=== PATIENT | female | born 1995 | race Caucasian/White ===

== ENCOUNTER → 2017-08-29 | Outpatient (CLI) | payer BC ==
[~2017-08-29] MED LIST: MEDR150I IM; METF500 PO; Omeprazole20 M1; TOPI25; TRAZ50
== END | disposition home or self-care (01) ==
LOC: LAB EV 15:00
DX: R30.0 Dysuria (principal)
CPT/HCPCS: 87086

== ENCOUNTER 2017-10-09 09:11 | Day surgery (SDC) | payer BC ==
[~2017-10-09] VITALS: Ht 165.1 cm; Wt 104.4 kg
[~2017-10-09 09:11] MED LIST changes: -Omeprazole20 M1; -TOPI25
[2017-10-09] MEDS ORDERED: Omeprazole20 M1 ×2 (10:11→10:12)
[2017-10-09] MEDS ORDERED: TOPI25 (10:12)
[2017-10-09] MEDS ORDERED: TRAZ50 (10:12)
== END 2017-10-09 11:15 | disposition home or self-care (01) ==
LOC: ORSCSDS 09:11
PROVIDERS: Internal Medicine Gastroenterology
PROC: 0DB68ZX Excision of Stomach, Via Natural or Artificial Opening Endoscopic, Diagnostic (ICD-10-PCS; principal; 2017-10-09 10:30)
PROC: 0DB98ZX Excision of Duodenum, Via Natural or Artificial Opening Endoscopic, Diagnostic (ICD-10-PCS; principal; 2017-10-09 10:30)
DX: R10.13 Epigastric pain (principal); K29.00 Acute gastritis without bleeding; K29.80 Duodenitis without bleeding; K20.9 Esophagitis, unspecified; R11.0 Nausea; R19.7 Diarrhea, unspecified; E28.2 Polycystic ovarian syndrome; Z79.899 Other long term (current) drug therapy
CPT/HCPCS: 88305; 88342; J7120

== ENCOUNTER → 2017-10-18 | Outpatient (CLI) | payer BC ==
[~2017-10-18] MED LIST changes: +Omeprazole20 M1; +TOPI25
[2017-10-19 09:28] LABS: Candida species (DNA Probe) Negative (NEGATIVE); G. vaginalis (DNA Probe) Positive (NEGATIVE); T. vaginalis (DNA Probe) Negative (NEGATIVE)
== END ==
LOC: LAB 13:42
PROVIDERS: Obstetrics & Gynecology
DX: N76.0 Acute vaginitis (principal)
CPT/HCPCS: 87480; 87510; 87660

== ENCOUNTER → 2017-11-28 | Outpatient (CLI) | payer BC | END | disposition home or self-care (01) | LOC: LAB SHORT 07:50 → PLD 07:50 | DX: L28.0 Lichen simplex chronicus (principal) | CPT/HCPCS: 88305 ==